=== PATIENT | male | born 1985 | race Caucasian/White ===

== ENCOUNTER 2018-11-26 18:58 | Emergency (ER) | payer BC, OTHER ==
--- NOTE | 2018-11-26 19:18 | ED ---
HPI Chest Pain - HPI Summary HPI Summary: Patient is a 33 y/o male who presents to the ED c/o CP. A few days ago he began to have constant chest pain, rated a 1/10 in severity. Patient describes the CP and pressure and aching, and is mid-sternal. The pain radiates to his back near his shoulder blades, and is not made worse with exertion. Patient also c/o headache, but denies any cough, fever, SOB, or congestion. He also states he had some belching and heartburn today but this was after eating. He notes that hes had similar pain in the past intermittently but has never sought out medical attention before. Patient is a former smoker. His father had an DE at 42 y/o. - History of Current Complaint Chief Complaint: EDChestPainROMI Time Seen by Provider: 11/26/18 19:14 Hx Obtained From: Patient Onset/Duration: Started Days Ago - 2-3, Still Present Timing: Constant Current Severity: Mild Pain Intensity: 1 Pain Scale Used: 0-10 Numeric Chest Pain Location: Mid Sternal Chest Pain Radiates: Yes Chest Pain Radiates To:: Back Character: Dull/Aching, Pressure/Squeezing Aggravating Factor(s): Nothing Alleviating Factor(s): Nothing Associated Signs and Symptoms: Positive: Chest Pain, Headaches, Back Pain. Negative: Shortness of Breath, Fever, Cough Related History: Similar Episode/Dx as: - has had this pain in the past - Allergy/Home Medications Allergies/Adverse Reactions: Allergies Allergy/AdvReac Type Severity Reaction Status Date / Time cefprozil [From Cefzil] Allergy Rash Verified 11/26/18 19:05 PMH/Surg Hx/FS Hx/Imm Hx Endocrine/Hematology History: Denies: Hx Diabetes Cardiovascular History: Denies: Hx Hypertension Respiratory History: Reports: Hx Asthma GI History: Reports: Other GI Disorders - pain, palpable lump per pt - Surgical History Surgery Procedure, Year, and Place: Rhinoplasty. Tonsillectomy. Adenoidectomy. Facial Cyst Infectious Disease History: No Infectious Disease History: Denies: Traveled Outside the [place] in Last 30 Days - Family History Known Family History: Positive: Cardiac Disease - [place] - father 42 y/o, Hypertension, Diabetes, Other - HLD - Social History Alcohol Use: Daily Alcohol Amount: 1 BEER/DAY Hx Substance Use: Yes Substance Use Type: Reports: Marijuana Hx Tobacco Use: Yes Smoking Status (MU): Former Smoker Amount Used/How Often: 3/4 PPD Review of Systems Negative: Fever Negative: Other - congestion Positive: Chest Pain - pressure Negative: Shortness Of Breath, Cough Positive: Other - belching, heartburn - resolved Positive: Myalgia - back Positive: Headache All Other Systems Reviewed And Are Negative: Yes Physical Exam - Summary Physical Exam Summary: Appearance: well appearing, no pain distress Skin: warm, dry, reflects adequate perfusion Head/face: normal Eyes: EOMI, PASTORA ENT: mucous membranes moist Neck: supple, non-tender Respiratory: CTA, breath sounds present Cardiovascular: RRR, pulses symmetrical Abdomen: non-tender, soft Bowel Sounds: present Musculoskeletal: normal, strength/ROM intact Neuro: normal, sensory motor intact, A&Ox3 Triage Information Reviewed: Yes Vital Signs On Initial Exam: Initial Vitals Temp Pulse Resp BP Pulse Ox 98.4 F 97 16 154/102 97 11/26/18 19:02 11/26/18 19:02 11/26/18 19:02 11/26/18 19:02 11/26/18 19:02 Vital Signs Reviewed: Yes Diagnostics - Vital Signs Vital Signs Temp Pulse Resp BP Pulse Ox 11/26/18 19:02 98.4 F 97 16 154/102 97 - Laboratory Result Diagrams: 11/26/18 19:37 11/26/18 19:37 Lab Statement: Any lab studies that have been ordered have been reviewed, and results considered in the medical decision making process. - Radiology CXR Radiology Interpretation Completed By: ED Physician Summary of Radiographic Findings: No acute pulmonary disease. Pending official radiology report. - EKG 19:15 Cardiac Rate: NL - 88 bpm EKG Rhythm: Sinus Rhythm ST Segment: Non-Specific Summary of EKG Findings: NL axis, nl intervals Re-Evaluation - Re-Evaluation First Eval Re-Evaluation Time: 20:28 Change: Improved Comment: Pt's back pain is resolved. He still has CP but it has improved. Second Eval Re-Evaluation Time: 21:55 Change: Improved Comment: Pt's plan has completely resolved. Chest Pain Course/Dx - Course Course Of Treatment: Nurse's notes reviewed. Patient with constant substernal chest pain for days that is nonexertional and nonradiating. His troponin, d- dimer and x-ray are all negative. EKG is normal. He felt better with GI meds and NSAID. We will treat for those. He is given follow-up with the [facility]. - Chest Pain Differential Diagnosis/HQI/PQRI: Acute DE, ACS, CHF, GI Disease, Lower Respiratory Infection - Diagnoses Provider Diagnoses: Atypical chest pain Discharge - Sign-Out/Discharge Documenting (check all that apply): Patient Departure - Discharge Patient Received Moderate/Deep Sedation with Procedure: No - Discharge Plan Condition: Improved Disposition: HOME Prescriptions: Pantoprazole TAB * [Protonix TAB*] 40 mg PO DAILY #30 tab raNITIdine HCl [Zantac] 150 mg PO BID #14 tablet Sucralfate TAB* [Carafate*] 1 gm PO ACHS #40 tab Patient Education Materials: Chest Pain (ED) Referrals: [facility] [Outside] [facility] [place] [facility] [place]Outside] Additional Instructions: Call first thing in the morning to schedule prompt follow-up with the [facility]. They can see in the next 1-2 days. Also you have been given referral for primary care physician. Call the number and they'll help much you up. You may take ibuprofen or Aleve as needed for additional pain not relieved by prescribed medications. Return with increased chest pain, shortness of breath, worse, new symptoms or other concerns. - Billing Disposition and Condition Condition: IMPROVED Disposition: Home - Attestation Statements Document Initiated by Emmanuel: Yes Documenting Scribe: Xiao Dale Provider For Whom Emmanuel is Documenting (Include Credential): Reyes Kingsley MD Scribe Attestation: Xiao Reynoso scribed for Reyes Kingsley MD on 11/27/18 at 0258. Scribe Documentation Reviewed: Yes Provider Attestation: The documentation as recorded by the Xiao han accurately reflects the service I personally performed and the decisions made by me, Reyes Kingsley MD Status of Scribe Document: Viewed
[2018-11-26] MEDS ORDERED: Aspirin 81 mg CHEW TAB* 81 MG TAB.CHEW PO ONE (19:21)
[2018-11-26] MEDS ORDERED: Famotidine TAB* 20 MG PO ONE (19:22)
[2018-11-26] MEDS ORDERED: Sucralfate TAB* 1 GM PO ONE (19:22)
[2018-11-26] MEDS ORDERED: Al Hydrox/Mg Hydrox/Simet LIQ* 30 ML UDC PO ONE (19:22)
[2018-11-26 19:54] LABS: ABS Basophils 0 10^3/ul (0-0.2); ABS Eosinophils 0.1 10^3/ul (0-0.6); ABS Lymphocytes 2.4 10^3/ul (1.0-4.8); ABS Monocytes 0.7 10^3/ul (0-0.8); ABS Neutrophils 7.4 10^3/ul (1.5-7.7); ABS Nucleated RBC 0 10^3/ul; Eosinophil % 0.8 %; Hematocrit 43 % (36-46); Hemoglobin 14.5 g/dL (14.0-18.0); Lymphocyte % 22.8 %; Mean Corpuscular HGB Conc 34 g/dL (31-36); Mean Corpuscular Hemoglobin 30 pg (27-31); Mean Corpuscular Volume 87 fL (80-94); Nucleated Red Blood Cells % 0.1; Platelet Count 212 10^3/uL (150-450); Red Blood Count 4.92 10^6 /uL (4.18-5.48); Red Cell Distribution Width 13 % (10.5-15); White Blood Count 10.7 10^3/uL (3.5-10.8)
[2018-11-26 20:11] LABS: Albumin 4.7 g/dL (3.2-5.2); BUN/Creatinine Ratio 28.2 (8-20); Calcium 9.4 mg/dL (8.6-10.3); EGFR African American 153.7 (>60); Globulin 2.4 g/dL (2-4); Potassium 4.1 mmol/L (3.5-5.0); Total Bilirubin 0.4 mg/dL (0.2-1.0); Total Protein 7.1 g/dL (6.4-8.9)
[2018-11-26] MEDS ORDERED: Ketorolac INJ* 60 MG/2 ML VIAL IM ONE (20:29)
[2018-11-26 22:01] VITALS: BP 136/83
== END 2018-11-26 22:11 | disposition home or self-care (01) ==
LOC: ED 18:58
DX: R07.89 Other chest pain (principal); J45.909 Unspecified asthma, uncomplicated; Z82.49 Family history of ischemic heart disease and other diseases of the circulatory system; Z87.891 Personal history of nicotine dependence; R51 Headache
CPT/HCPCS: 36415; 71046; 80053; 83605; 83690; 83880; 84484; 85025; 85379; 93005; 96372; 99283; A9270-GY; J1885

== ENCOUNTER 2019-02-14 19:26 | Emergency (ER) | payer BC ==
--- NOTE | 2019-02-14 19:31 | UC ---
Throat Pain/Nasal Damien HPI - HPI Summary HPI Summary: 36-year-old male comes in with a chief complaint of sore throat and right ear pain. Patient's had upper respiratory tract infection symptoms for about 2 weeks now. He's had some sore throat the whole time. He did have some chills has not measured any fevers. No chest congestion or shortness of breath. He did have some rhinorrhea earlier in the illness. It hurts to swallow. Cough drops decrease the pain. No difficulty with breathing. - History of Current Complaint Stated Complaint: SORE THROAT Time Seen by Provider: 02/14/19 19:29 - Allergies/Home Medications Allergies/Adverse Reactions: Allergies Allergy/AdvReac Type Severity Reaction Status Date / Time cefprozil [From Cefzil] Allergy Rash Verified 02/14/19 19:33 PMH/Surg Hx/FS Hx/Imm Hx Previously Healthy: Yes - Surgical History Surgical History: Yes Surgery Procedure, Year, and Place: Rhinoplasty. Tonsillectomy. Adenoidectomy. Facial Cyst - Family History Known Family History: Positive: Cardiac Disease - [place] - father 42 y/o, Hypertension, Diabetes, Other - HLD - Social History Alcohol Use: Daily Alcohol Amount: 1 BEER/DAY Substance Use Type: Marijuana Smoking Status (MU): Former Smoker Amount Used/How Often: 3/ PPD - Immunization History Most Recent Tetanus Shot: UNSURE (WILL BE UPDATED TODAY, 03/06/14) Review of Systems All Other Systems Reviewed And Are Negative: Yes Constitutional: Positive: Chills Skin: Positive: Negative Eyes: Positive: Negative ENT: Positive: Sore Throat, Ear Ache, Nasal Discharge, Sinus Congestion Respiratory: Positive: Negative Cardiovascular: Positive: Negative Gastrointestinal: Positive: Negative Motor: Positive: Negative Neurovascular: Positive: Negative Musculoskeletal: Positive: Negative Neurological: Positive: Negative Psychological: Positive: Negative Is Patient Immunocompromised?: No Physical Exam Triage Information Reviewed: Yes Appearance: Well-Appearing, No Pain Distress, Well-Nourished Vital Signs Reviewed: Yes Eye Exam: Normal Eyes: Positive: Conjunctiva Clear ENT: Positive: Pharyngeal erythema, Nasal congestion, Nasal drainage, TM dull - RT, Uvula midline. Negative: Muffled voice, Hoarse voice Neck: Positive: Supple Respiratory: Positive: Lungs clear, Normal breath sounds, No respiratory distress Cardiovascular: Positive: RRR Musculoskeletal Exam: Normal Musculoskeletal: Positive: Strength Intact, ROM Intact Neurological Exam: Normal Neurological: Positive: Alert, Muscle Tone Normal Psychological Exam: Normal Skin Exam: Normal Throat Pain/Nasal Course/Dx - Course Course Of Treatment: >10 DAYS OF SX THEREFORE RX ABX - Differential Dx/Diagnosis Provider Diagnosis: Pharyngitis, Right serous otitis media Discharge - Sign-Out/Discharge Documenting (check all that apply): Patient Departure All imaging exams completed and their final reports reviewed: No Studies - Discharge Plan Condition: Stable Disposition: HOME Prescriptions: Amoxicillin PO (*) [Amoxicillin 875 MG (*)] 875 mg PO BID #20 tab Patient Education Materials: Pharyngitis (ED), Serous Otitis Media (ED) Referrals: [facility] [place] [facility] [Outside] Additional Instructions: FOLLOW UP WITH YOUR DOCTOR IF NOT COMPLETELY IMPROVED. GET RECHECKED SOONER IF YOUR CONDITION WORSENS OR ANY QUESTIONS OR CONCERNS. - Billing Disposition and Condition Condition: STABLE Disposition: Home
[2019-02-14 19:33] VITALS: BP 132/86
== END 2019-02-14 19:49 | disposition home or self-care (01) ==
LOC: UCEAST 19:26
DX: H65.91 Unspecified nonsuppurative otitis media, right ear (principal); Z88.1 Allergy status to other antibiotic agents; Z87.891 Personal history of nicotine dependence
CPT/HCPCS: 99201; G0463